=== PATIENT | male | born 1975 | race Caucasian/White ===

== ENCOUNTER 2025-03-21 14:27 | Emergency (ER) | payer OTHER ==
[~2025-03-21] VITALS: Ht 188 cm; Wt 120.0 kg
--- NOTE | 2025-03-21 14:34 | ELECTROCARDIOGRAPH REPORT ---
[facility] Test Date: 2025-03-21 Test Time: 14:32:50 Pat Name: BLANE THOMAS Department: EMERGENCY ROOM Room: Gender: M [employer] Worker: ORTEGA : 1975 Requested By: BRI STRONG Order Number: [id number] Reading MD: Measurements Intervals [place] Rate: 96 P: 35 MN: 157 QRS: 73 QRSD: 104 T: 14 QT: 344 QTc: 435 Interpretive Statements Sinus rhythm Low voltage, precordial leads Baseline wander in lead(s) V1 Please click the below link to view image of tracing.
[2025-03-21 14:53] LABS: MEAN PLATELET VOLUME 8.8 FL (7.4-10.4); RED CELL DISTRIBUTION WIDTH 13.9 % (11.5-14.5)
--- NOTE | 2025-03-21 14:55 | RADIOLOGY REPORT ---
EXAM: DI CHEST,SINGLE VIEW HISTORY: CP COMPARISON: None TECHNIQUE: PA upright view of the chest was performed. FINDINGS: No pneumothorax, consolidative infiltrates, or pulmonary edema. There is mild relative elevation of t he right hemidiaphragm. The heart is not enlarged. There is mild thoracic levoscoliosis. IMPRESSION: No acute intrathoracic process.
[2025-03-21 15:14] LABS: CREATININE 1.17 MG/DL (0.60-1.10); PRO BRAIN NATRIURETIC PEPTIDE < 30 PG/ML (0-125); TOTAL CARBON DIOXIDE 25.9 MMOL/L (24-32); eCRCL 89 ML/MIN; eGFR 66 ML/MIN
--- NOTE | 2025-03-21 16:21 | Physician Documentation ---
History of Present Illness ~ Chief Complaint: Chest Pain Stated Complaint: CP Time Seen by MD: 14:45 Mode of Arrival: POV, Ambulatory HPI This is a 49-year-old male who presents with sternal nonradiating pain scribed as "something stuck and squeezing pressure", onset at rest this morning, patient reports no aggravating or palliating factors, patient reports mild shortness of breath, though reports no nausea, vomiting, or diaphoresis. reports 20 minutes prior to arrival he developed some numbness and tingling in his left hand and left jaw. patient reports history of mild hypertension and hyperlipidemia though reports no cardiac history. Patient does report family cardiac history. Medication Reconciliation Allergies: Coded Allergies: No Known Allergies (Unverified , 03/21/25) Past Medical History Past Medical History: High Cholesterol, Hypertension Review of Systems ROS Chest pain as stated above in the HPI, otherwise all systems are reviewed and negative. Physical Exam Vital Signs: Temperature: 98.1, Source: Temporal, Heart Rate: 106, Respiratory Rate: 18, BP: 155/103, Pulse Oximetry: 100, Weight: 120.000 Oxygen Flow Rate: 0 Physical Exam VITALS: Reviewed and as above. GENERAL: Alert, nontoxic appearing, no apparent distress. RESPIRATORY: No increased work of breathing, no respiratory distress, speaking in full clear sentences, clear lung sounds in all [place] CHEST: Nontender to palpation CV: Regular rate and rhythm no murmur BACK: No CVA tenderness GI: Soft, nondistended, nontender, no rebound, no guarding, bowel sounds present SKIN: Warm and dry Progress Results/Orders Results/Orders Completed Orders - TIARRA DOWLING D-Dimer (03/21/25 14:45) Vital Signs 03/21/25 03/21/25 03/21/25 03/21/25 14:49 14:52 17:25 18:31 Temp 98.1 98.1 98.6 Pulse 106 71 70 Resp 20 18 16 18 B/P (MAP) 155/103 165/111 (129) 164/108 Pulse Ox 100 95 99 O2 Flow Rate 0 0 Laboratory Tests Test 03/21/25 14:39 03/21/25 17:00 03/21/25 17:48 White Blood Count 7.4 Red Blood Count 5.11 Hemoglobin 14.8 Hematocrit 42.9 Mean Corpuscular Volume 83.9 Mean Corpuscular Hemoglobin 28.9 Mean Corpuscular Hemoglobin Concent 34.5 Red Cell Distribution Width 13.9 Platelet Count 280 Mean Platelet Volume 8.8 Neutrophils (%) (Auto) 61.4 Lymphocytes (%) (Auto) 29.7 Monocytes (%) (Auto) 6.9 Eosinophils (%) (Auto) 1.5 Basophils (%) (Auto) 0.5 Neutrophils # (Auto) 4.6 Lymphocytes # (Auto) 2.2 Monocytes # (Auto) 0.5 Eosinophils # (Auto) 0.1 Basophils # (Auto) 0.0 CBC Comment D-Dimer 0.42 D-Dimer Comment Sodium Level 140 Potassium Level 4.3 Chloride Level 105 Carbon Dioxide Level 25.9 Anion Gap 9 Blood Urea Nitrogen 18 Creatinine 1.17 H Estimated GFR/1.73 m2 66 BUN/Creatinine Ratio 15.4 Glucose Level 130 H Calcium Level 9.0 Troponin I High Sensitivity 7 6 7 Pro-B-Type Natriuretic Peptide < 30 Albumin 4.0 Chemistry Comments Troponin I High Sens Percent Delta 14 0 Troponin I Hi Sens Absolute Change -1 0 EKG/XRAY/CT/US/VASC/MRI EKG : Additional Comment EKG at 1432 interpreted by myself as sinus rhythm at a rate of 96, normal axis, no ST segment elevation or depression Chest X-Ray : Additional Comments EXAM: DI CHEST,SINGLE VIEW HISTORY: CP COMPARISON: None TECHNIQUE: PA upright view of the chest was performed. FINDINGS: No pneumothorax, consolidative infiltrates, or pulmonary edema. There is mild relative elevation of the right hemidiaphragm. The heart is not enlarged. There is mild thoracic levoscoliosis. IMPRESSION: No acute intrathoracic process. Electronically Signed by:OMER GAMBINO MD Date & Time: 03/21/251451 Dictated by: OMER GAMBINO MD Dictation date and time: 03/21/251451 I have reviewed and agree with the radiology report. I have reviewed and interpreted the imaging as: No focal consolidation or pneumothorax Heart Score: Heart Score Response (Comments) Value History Moderate Suspicious 1 EKG Normal 0 Age 45-64 1 Risk Factors 1 or 2 risk factors 1 Troponin Normal limit 0 Total 3 Medical Decision Making Findings This is a 49-year-old male who presented with nonradiating sternal chest discomfort and feeling of mild shortness of breath without aggravating or relieving factors. EKG did not demonstrate evidence of dysrhythmia, ischemia or infarction. Chest x-ray did not demonstrate intra thoracic process. Initial and repeat troponins were not elevated. Due to patient reporting recent long road trip a D-dimer was ordered however it was not elevated making suspicion for pulmonary embolism low. Patient was otherwise well-appearing and after being monitored in the emergency department patient reported symptoms had begun to resolve spontaneously without treatment. I discussed with the patient the option for possible inpatient admission as a cause of his chest pain was not clear however patient had a strong preference for outpatient treatment and with shared decision-making patient will be discharged home. Patient is hemodynamically stable and otherwise well-appearing therefore appropriate for outpatient follow up. Patient provided strict return to care precautions which he verbalized understanding of. Differential Dx:Considerations: Include: angina, chest wall pain, cholelithiasis, CHF, costochondritis, esophageal reflux/spasm, herpes zoster, myocardial infarction, pericarditis, pleuritis, pancreatitis, pneumonia, pneumothorax, pulmonary embolus Departure Disposition: HOME / SELF CARE / HOMELESS Impression: Primary Impression: Chest pain Qualified Codes: R07.9 - Chest pain, unspecified Condition: Improved Discharge Instructions: Nonspecific Chest Pain, Adult Additional Instructions: Please follow up with your primary care provider in the next few days you will likely need a referral to a electrical construction project manager. Please return to the emergency depar tment for any new or worsening concerning symptoms including but not limited to worsening chest pain, change in the nature of the chest pain, or chest pain with shortness of breath. Referrals: NO PRIMARY CARE PROVIDER (PCP) Education Educated: Patient Educated regarding: diagnosis, treatment, prognosis, need for follow up Signature Scribe Signature: No scribe Attestation: The note accurately reflects work and decisions made by me.ALFONSO Castro 03/22/25 02:43 TIARRA DOWLING Mar 21, 2025 16:21
[2025-03-21 18:31] VITALS: BP 164/108; PULSE 70; RESP 18; TEMP 98.6; O2SAT 99
== END 2025-03-21 18:33 | disposition home or self-care (01) ==
LOC: ER 14:28
DX: R07.9 Chest pain, unspecified (principal); R20.0 Anesthesia of skin; R20.2 Paresthesia of skin; E78.00 Pure hypercholesterolemia, unspecified; I10 Essential (primary) hypertension
CPT/HCPCS: 36415; 71045; 80048; 83880; 84484; 85025; 85379; 93005; 99285